=== PATIENT | female | born 1985 | race Caucasian/White ===

== ENCOUNTER → 2021-01-21 | Outpatient (CLI) | payer OTHER ==
--- NOTE | 2021-01-21 12:24 | RAD ---
EXAM: Pelvic sonogram. HISTORY: Pain. TECHNIQUE: Transabdominal and transvaginal sonographic imaging of the pelvis was performed. COMPARISON: None. FINDINGS: The uterus measures 9.2 x 5.5 x 3.8 cm. The endometrial stripe measures 2 mm in thickness. The ovaries are normal in size and demonstrate normal blood flow. There are prominent bilateral adnex al vessels. The bladder is unremarkable. There is no pelvic free fluid. IMPRESSION: 1. Prominent bilateral adnexal vessels. This can be seen with pelvic congestion. Correlate with sympt omatology. 2. Otherwise, unremarkable pelvic sonogram. Electronically signed by: Angela Wolfe MD (01/21/2021 12:21 PM) [id number]
== END ==
LOC: US 11:10
PROVIDERS: ATTEND Nurse Practitioner Family
DX: N94.89 Other specified conditions associated with female genital organs and menstrual cycle (principal); R10.2 Pelvic and perineal pain
CPT/HCPCS: 76830; 76856